=== PATIENT | male | born 1950 | race Caucasian/White ===

== ENCOUNTER 2018-04-23 22:51 | Inpatient (IN) | payer OTHER, MEDICARE ==
[~2018-04-23] VITALS: Ht 175.3 cm; Wt 74.1 kg
[~2018-04-23 22:51] MED LIST: DICLOFENAC SODI75 M2 PO
--- NOTE | 2018-04-24 00:59 | ED GENERAL ADULT ---
History of Present Illness General Chief Complaint: General Adult Stated Complaint: BLOOD IN BOWEL MOVEMENT Source: patient, family Exam Limitations: no limitations Vital Signs & Intake/Output Vital Signs & Intake/Output Vital Signs Date Time Temp Pulse Resp B/P B/P Pulse O2 O2 Flow FiO2 Mean Ox Delivery Rate 04/23 2304 98.2 116 20 157/80 97 Room Air ED Intake and Output 04/24 0000 04/23 1200 Intake Total Output Total Balance Patient 160 lb Weight Weight Reported by Patient Measurement Method Mild tachycardia noted Allergies Coded Allergies: No Known Allergies (04/23/18) Reconcile Medications Diclofenac Sodium 75 MG TABLET.DR 1 TAB PO BID PRN PAIN Triage Note: TRIAGE: PT TO ER WITH C/C BLOOD IN STOOL X COUPLE OF EPISODES THIS EVENING. STOOL WAS DIARRHEA. LNBM 11 AM. DENIES ANY PAIN. NO HX OF HEMMORRHOIDS. DENIES ANY OTHER S/S. Triage Nurses Notes Reviewed? yes Onset: Abrupt Duration: hour(s): Timing: multiple episodes today Severity: moderate No Modifying Factors: none HPI: This is an otherwise healthy 67-year-old male on no home medications who presents with several hours of recurrent blood per rectum. Patient states that he had a urge to use the bathroom, noticed he had blood in the bowl. He is unable to quantify but states that he has now had 4 episodes of dark, bloody stool. He denies any pain or discomfort. He has had no fever chills. He has had no recent illness. His father had colon cancer at a young age and he was therefore monitored every 3 years via colonoscopy starting in his 50s. His last colonoscopy was 5 years ago and revealed only polyps. He denies any change in recent bowel habits before today. He denies any unintentional weight loss. He denies ever having any bleeding problems or diverticulosis. He follows with Dr. Millan. Past History Travel History Traveled to [place] past 21 day No Medical History Any Pertinent Medical History? 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 Yes (colon ca in father) Review of Systems Review of Systems Constitutional: Reports: no symptoms. EENTM: Reports: no symptoms. Respiratory: Reports: no symptoms. Cardiovascular: Reports: no symptoms. GI: Reports: diarrhea, bloody stool, changes in stool. Denies: nausea. Genitourinary: Reports: no symptoms. Musculoskeletal: Reports: no symptoms. Skin: Reports: no symptoms. Neurological/Psychological: Reports: no symptoms. Hematologic/Endocrine: Reports: no symptoms. Physical Exam Physical Exam General Appearance: well developed/nourished, no apparent distress, alert, awake Head: atraumatic, normal appearance Eyes: Bilateral: normal appearance. Ears, Nose, Throat: normal pharynx Neck: normal inspection, supple, full range of motion Respiratory: normal breath sounds, lungs clear Cardiovascular: regular rate/rhythm Gastrointestinal: normal bowel sounds, soft, non-tender Rectal: normal rectal tone, heme positive stool, Dark, bloody stool in vault; no TTP; no obvious mass or other lesions Back: normal inspection Extremities: normal inspection Neurologic/Psych: no motor/sensory deficits, awake, alert, oriented x 3 Skin: intact, normal color, warm/dry Core Measures ACS in differential dx? No CVA/TIA Diagnosis: No Sepsis Present: No Sepsis Focused Exam Completed? Yes Progress Differential Diagnoses I considered the following diagnoses in my evaluation of the patient: [Lower GI bleed, upper GI bleed, colon cancer, coagulopathy] Plan of Care: Orders Procedure Date/time Status Nothing by Mouth 04/24 B Active Patient Data 04/24 155 Active Misc Message 04/24 151 Active ED Holding Orders 04/24 151 Active Code Status 04/24 151 Active Admit to inpatient 04/24 150 Active URINALYSIS 04/24 52 Complete PARTIAL THROMBOPLASTIN TIME 04/24 52 Complete PROTHROMBIN TIME 04/24 52 Complete COMPREHENSIVE METABOLIC PANEL 04/24 52 Complete CBC WITHOUT DIFFERENTIAL 04/24 52 Complete TYPE & SCREEN (NOT X-MATCH) 04/24 52 Active Laboratory Tests 04/24/18 0115: Anion Gap 12, Estimated GFR > 60, BUN/Creatinine Ratio 21.8, Glucose 105 H, Calcium 9.2, Total Bilirubin 0.7, AST 19, ALT 27, Alkaline Phosphatase 91, Total Protein 7.1, Albumin 4.1, Globulin 3.0, Albumin/Globulin Ratio 1.4, PT 12.1, INR 1.11, APTT 28, CBC w Diff NO MAN DIFF REQ, RBC 5.03, MCV 86.5, MCH 30.1, MCHC 34.8, RDW 12.8, MPV 7.9, Gran % 74.6, Lymphocytes % 13.8 L, Monocytes % 8.5, Eosinophils % 2.7, Basophils % 0.4, Absolute Granulocytes 4.9, Absolute Lymphocytes 0.9 L, Absolute Monocytes 0.6, Absolute Eosinophils 0.2, Absolute Basophils 0, Urine Color STRAW, Urine Clarity CLEAR, Urine pH 6.5, Ur Specific [place] <= 1.005, Urine Protein NEG, Urine Ketones NEG, Urine Nitrite NEG, Urine Bilirubin NEG, Urine Urobilinogen 0.2, Ur Leukocyte Esterase NEG, Ur Microscopic EXAM NOT REQUIRED, Urine Hemoglobin NEG, Urine Glucose NEG We will check labs, orthostatics, likely admission. Plan for Protonix IV. Initial ED EKG: none Comments: In this otherwise healthy 59-year-old male, we note mild tachycardia but stable vital signs otherwise with a stable and normal H&H. He is admitted to the medicine service for further management. No indication now for emergent endoscopy or colonoscopy. Case is discussed with die stamping press operator and internal medicine resident. Care signed out to Dr. Fraire in the ED. Departure Departure Disposition: STILL A PATIENT Condition: Stable Clinical Impression Primary Impression: Blood per rectum Referrals: Shellie Upton (PCP/Family) Departure Forms: Customer Survey General Discharge Information Critical Care Note Critical Care Note Critical Care Time: non-applicable
[2018-04-24 01:30] LABS: ABSOLUTE BASOPHIL COUNT 0 /CUMM (0.0-0.2); ABSOLUTE EOSINOPHIL COUNT 0.2 /CUMM (0.0-0.7); ABSOLUTE GRANULOCYTE CT 4.9 /CUMM (1.4-6.5); ABSOLUTE LYMPH COUNT 0.9 /CUMM (1.2-3.4); ABSOLUTE MONOCYTE COUNT 0.6 /CUMM (0.10-0.60); BASOPHIL % 0.4 % (0.0-2.0); EOSINOPHIL % 2.7 % (0-5); GRANULOCYTE % 74.6 % (42.2-75.2); HEMATOCRIT 43.6 % (42-52); MEAN CORPUSCULAR HGB 30.1 PG (27.0-31.0); MEAN CORPUSCULAR HGB CONC 34.8 G/DL (33.0-37.0); MEAN CORPUSCULAR VOLUME 86.5 FL (80.0-94.0); MEAN PLATELET VOLUME 7.9 FL (7.4-10.4); PLATELET COUNT 211 /CUMM (130-400); RBC DISTRIBUTION WIDTH 12.8 % (11.5-14.5); RED BLOOD CELL CT 5.03 /CUMM (4.70-6.10); WHITE BLOOD CELL COUNT 6.5 /CUMM (4.8-10.8)
[2018-04-24 01:44] LABS: PT 12.1 SEC (9.4-12.5); PTT 28 SEC (25-37)
--- NOTE | 2018-04-24 02:31 | History & Physical ---
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 Patient recalls having a bowel movement at 2230 this evening that was diarrhea with darkened blood but no clots. He did have tenesmus. This the first time he has ever had blood in his stool. He had 4 further episodes. Decided to come to the emergency room for further evaluation. Patient has had frequent colonoscopies due to family history of colon cancer in his father. His last colonoscopy was in 2011 and was normal. He is followed by Dr. Millan. He occasionally uses naproxen and for the past 3 days has used [place] once per day for a cold. He denies any recent travel, palpitations, sick contacts, pre-syncope, hematemesis, heartburn, dizziness, shortness of breath, chest pain, abdominal pain, dysuria, nausea. He is a never smoker, rarely drinks alcohol, denies recreational drug use. 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 EENTM: Reports: no symptoms. Cardiovascular: Reports: no symptoms. Respiratory: Reports: no symptoms. GI: Reports: see HPI. Genitourinary: Reports: no symptoms. Musculoskeletal: Reports: no symptoms. Skin: Reports: no symptoms. Neurological/Psychological: Reports: no symptoms. Hematologic/Endocrine: Reports: no symptoms. Immunologic/Allergic: Reports: no symptoms. All Other Systems: Reviewed and Negative Exam & Diagnostic Data Last 24 Hrs of Vital Signs/I&O Vital Signs Date Time Temp Pulse Resp B/P B/P Pulse O2 O2 Flow FiO2 Mean Ox Delivery Rate 04/23 2304 98.2 116 20 157/80 97 Room Air Intake & Output 04/24 0800 04/24 0000 04/23 1600 Intake Total Output Total Balance Patient 72.575 kg Weight Weight Reported by Patient Measurement Method Physical Exam General Appearance Alert, Oriented X3, Cooperative, No Acute Distress HEENT Atraumatic Cardiovascular Regular Rate, Normal S1, Normal S2 Lungs Clear to Auscultation Abdomen Normal Bowel Sounds, Soft, No Tenderness, No Hepatospenomegaly, No Masses Neurological Normal Speech Last 24 Hrs of Labs/Suresh: Laboratory Tests 04/24/18 0115: Anion Gap 12, Estimated GFR > 60, BUN/Creatinine Ratio 21.8, Glucose 105 H, Calcium 9.2, Total Bilirubin 0.7, AST 19, ALT 27, Alkaline Phosphatase 91, Total Protein 7.1, Albumin 4.1, Globulin 3.0, Albumin/Globulin Ratio 1.4, PT 12.1, INR 1.11, APTT 28, CBC w Diff NO MAN DIFF REQ, RBC 5.03, MCV 86.5, MCH 30.1, MCHC 34.8, RDW 12.8, MPV 7.9, Gran % 74.6, Lymphocytes % 13.8 L, Monocytes % 8.5, Eosinophils % 2.7, Basophils % 0.4, Absolute Granulocytes 4.9, Absolute Lymphocytes 0.9 L, Absolute Monocytes 0.6, Absolute Eosinophils 0.2, Absolute Basophils 0, Urine Color STRAW, Urine Clarity CLEAR, Urine pH 6.5, Ur Specific [place] <= 1.005, Urine Protein NEG, Urine Ketones NEG, Urine Nitrite NEG, Urine Bilirubin NEG, Urine Urobilinogen 0.2, Ur Leukocyte Esterase NEG, Ur Microscopic EXAM NOT REQUIRED, Urine Hemoglobin NEG, Urine Glucose NEG Assessment/Plan Assessment: 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 On presentation, vital signs were T 98.2, HR 116, RR 20, BP 157/80, saturating 97% on room air. Laboratories were completely normal. He will be admitted to general medicine and treated for the following problems: 1. Hematochezia #Hematochezia: Patient presents with history of diarrhea and bloody stools. Guaiac positive. Differential diagnosis includes diverticular bleed, colon cancer, infectious etiology, or other etiology. Patient is hemodynamically stable with normal hemoglobin and benign abdominal exam. -Clear liquid diet -Gastroenterology consult -Guaiac all stools -2 large-bore IV -Stool culture, ova and parasites -CBC every 12 hours -IV pantoprazole twice daily DVT prophylaxis with Alps Clear liquid diet Full code As Ranked By This Provider Problem List: 1. Blood per rectum Core Measures/Misc (08/08) Acute Coronary Syndrome ACS Diagnosis: No Congestive Heart Failure Congestive Heart Failure Diagnosis No Cerebrovascular Accident CVA/TIA Diagnosis: No VTE (View Protocol) VTE Risk Factors Age>40 No Mechanical VTE Prophylaxis d/t N/A MechProphylax Ordered No VTE Pharm Prophylaxis d/t Bleeding (Active) Sepsis (View protocol) Sepsis Present: No If YES complete Sepsis Event Note If YES complete Sepsis Event Note Hugh Diggs 04/24/18 0322: General Information and HPI Allergies/Medications Home Med list No Known Home Medications Past Family/Social History Family History Relations & Conditions if any MOTHER (Lung Ca). FATHER (Colon Cancer at 80 years Lung Cancer Diabetes Mellitus). 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 This is the first episode of blood per rectum the patient is experiencing. He denies any abdominal pain, nausea or vomiting. He has no upper GI symptoms and no history of vomiting blood in the past. Patient has had multiple colonoscopies a total of 4 to be exact and last one was 2011 which was normal. He has family history of colon cancer with his father having colon cancer at age of 80 years. He denies using NSAIDs, no recent travels and no consumption of and unsterilized pond quan. He has no history of easy bleeding or blood in urine. Patient denies any dizziness lightheadedness, shortness of breath, palpitation or tiredness. He has no fever or chills and denies any tenesmus or urgency. Vital signs on arrival afebrile 98.2 heart rate of 116 and respiration of 20 blood pressure 157/18 desaturating 97% on room air Physical examination: Seated comfortably in bed not in acute distress pink mucous membranes and pounds, a late and oriented to time place and person. Abdomen: Slightly obese, normal contour moving with respiration no palpable masses no tenderness. FRANCISCA done by ER physician and it's guaic positive. Head and neck: Wet mucous membranes no distended neck vessels CVS: Regular rate and rhythm normal S1-S2 no murmurs RS: Clear lungs bilaterally Extremities: No cyanosis edema or clubbing. Labs: H&H of 15.1 and 43.6, normal WBC of 6.5, slightly increased BUN of 24 with normal creatinine of 1.1, INR normal 1.11 EKG: Normal sinus rhythm 75 bpm regular with normal axis and no ST-T wave changes QTC of 420 Assessment and plan This is a 67 years old man without significant past medical history presenting with one-day episode of bright red per rectum mixed with darkish blood about 4 bouts mixed with diarrhea stools. This is the first episode of blood in stool. Patient is not on any medication, has no recent travels and no evidence of infection associated with the blood in stool. Patient is hemodynamically stable and has a very good H&H. This is most likely a lower GI bleed and unlikely to be upper GI with rapid transit for patient who is hemodynamically stable as that would've been more massive bleeding and likely to cause hemodynamic compromise Lower GI bleeding Admit the patient to general medicine floor Vital signs every shift CBC every 12 Guaiac all stools 2 large-bore canullas Blood group without cross match IV pantoprazole 40 mg daily Nothing by mouth pending GI evaluation Patient is full code Iglesia Bland MD 04/24/18 0457: Core Measures/Misc (08/08) Sepsis (View protocol) If YES complete Sepsis Event Note If YES complete Sepsis Event Note Attending MD Review Statement Attending Statement Attending MD Statement: examined this patient, discuss w/resident/PA/INDUSTRIAL SERVICES WORKER, agreed w/resident/PA/INDUSTRIAL SERVICES WORKER, discussed with nursing Attending Assessment/Plan: Mr. Sterling is a 59-year-old male with past medical history of lung nodules and shingles, has had multiple colonoscopies due to family history of colon cancer who presents with hematochezia. On presentation, vital signs were T 98.2, HR 116, RR 20, BP 157/80, saturating 97% on room air. Laboratories were completely normal. 1. Hematochezia with Guiaic positive - likely lower GI bleed - NPO for now - As patient is hemodynamically stable -Gastroenterology consult -CBC every 12 hours -IV pantoprazole twice daily - ALPS for DVT prophylaxis
[2018-04-24 06:01] LABS: ABSOLUTE BASOPHIL COUNT 0 /CUMM (0.0-0.2); ABSOLUTE EOSINOPHIL COUNT 0.1 /CUMM (0.0-0.7); ABSOLUTE GRANULOCYTE CT 4.2 /CUMM (1.4-6.5); ABSOLUTE MONOCYTE COUNT 0.5 /CUMM (0.10-0.60); BASOPHIL % 0.1 % (0.0-2.0); EOSINOPHIL % 2.2 % (0-5); GRANULOCYTE % 71.5 % (42.2-75.2); HEMATOCRIT 42.5 % (42-52); MEAN CORPUSCULAR HGB 29.4 PG (27.0-31.0); MEAN CORPUSCULAR VOLUME 86.3 FL (80.0-94.0); MEAN PLATELET VOLUME 7.6 FL (7.4-10.4); PLATELET COUNT 193 /CUMM (130-400); RBC DISTRIBUTION WIDTH 12.9 % (11.5-14.5); RED BLOOD CELL CT 4.92 /CUMM (4.70-6.10); WHITE BLOOD CELL COUNT 5.8 /CUMM (4.8-10.8)
--- NOTE | 2018-04-24 10:01 | Cons- Gastroenterology ---
General Information and HPI Consulting Request Date of Consult: 04/24/18 (MD [facility]/GASTROENTEROLOGY) Requested By: Iglesia Bland MD Reason for Consult: Hematochezia Source of Information: patient, old records History of Present Illness: 67-year-old white male with a family history of colon cancer and a personal history of adenomatous polyps, with most recent colonoscopy in 2011 demonstrating left-sided diverticulosis, but no recurrent neoplasia. Generally, he has no GI symptoms, including heartburn, dysphagia, dyspepsia, nausea, abdominal pain, diarrhea, constipation, unexplained weight loss. There has been no previous GI bleed. There is no history of liver disease. Yesterday evening the patient had 2 episodes of diarrhea accompanied by dark red blood. He had 2 more in the emergency room, but none in over 8 hours at this point. There has been no abdominal pain/cramps, nausea, vomiting. The patient denies dizziness, lightheadedness, syncope, chest pain, diaphoresis, shortness of breath. Family history positive for colon cancer (father). The patient does not smoke cigarettes, nor abuse alcohol. Allergies/Medications Allergies: Coded Allergies: No Known Allergies (04/23/18) Home Med List: No Known Home Medications Current Medications: Current Medications Sig/Jemal Start time Last Medication Dose Route Stop Time Status Admin Pantoprazole Sodium 0 .STK-MED ONE 04/24 0951 DC IV Pantoprazole Sodium 40 MG DAILY 04/24 0900 DC IV Pantoprazole Sodium 40 MG BID 04/24 0900 AC 04/24 IV 0946 Pantoprazole Sodium 0 .STK-MED ONE 04/24 0131 DC IV Pantoprazole Sodium 80 MG ONCE ONE 04/24 0100 DC 04/24 IV 04/24 0101 0128 Past History Travel History Traveled to [place] past 21 day No Medical History Blood Transfusion Hx: No Neurological: NONE EENT: NONE Cardiovascular: NONE Respiratory: BENIGN NODULES IN LUNGS Gastrointestinal: NONE Hepatic: NONE Renal: NONE Musculoskeletal: SHINGLES Psychiatric: NONE Endocrine: NONE Blood Disorders: NONE Cancer(s): NONE 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 FATHER (Colon Cancer at 80 years Lung Cancer Diabetes Mellitus). Psychosocial History Where Do You Live? Home Services at Home: None Smoking Status: Never Smoked ETOH Use: occasional use Illicit Drug Use: denies illicit drug use Review of Systems Review of Systems Constitutional: Denies: chills, diaphoresis, fever, unexplained weight loss. EENTM: Denies: icterus, epistaxis. Cardiovascular: Denies: chest pain, syncope. Respiratory: Denies: hemoptysis, short of breath. GI: Reports: see HPI. Genitourinary: Denies: dysuria, hematuria. Musculoskeletal: Denies: muscle stiffness, neck pain. Skin: Denies: jaundice, lesions. Neurological/Psychological: Denies: cognitive dysfunction, confusion. Hematologic/Endocrine: Reports: bleeding. Denies: bruising. Exam & Diagnostic Data Vital Signs and I&O Vital Signs Date Time Temp Pulse Resp B/P B/P Pulse O2 O2 Flow FiO2 Mean Ox Delivery Rate 04/24 546 97.6 71 18 141/79 96 Room Air 04/23 2304 98.2 116 20 157/80 97 Room Air Intake & Output 04/24 1600 04/24 0400 04/23 1600 04/23 0400 04/22 1600 04/22 0400 Intake Total Output Total Balance Patient 160 lb 160 lb Weight Weight Reported by Patient Measurement Method Physical Exam: Alert and oriented with normal cognition. Skin normal without rash, lesion, jaundice, stigmata of liver disease. No ecchymoses, petechiae purpura. No adenopathy. Sclera anicteric. Oropharynx normal. Neck supple without thyromegaly or mass. Heart regular rhythm. Lungs clear. Abdomen soft and nondistended with normal bowel sounds, and no tenderness, mass or organomegaly. No palpable hernia. Extremities without clubbing, cyanosis or edema. Normal distal pulses. Results Pertinent Lab Results: Laboratory Tests 04/24 04/24 0550 0115 Chemistry Sodium (137 - 145 mmol/L) 140 Potassium (3.5 - 5.1 mmol/L) 4.5 Chloride (98 - 107 mmol/L) 102 Carbon Dioxide (22 - 30 mmol/L) 27 Anion Gap (5 - 16) 12 BUN (9 - 20 mg/dL) 24 H Creatinine (0.7 - 1.2 mg/dL) 1.1 Estimated GFR (>60 ml/min) > 60 BUN/Creatinine Ratio (7 - 25 %) 21.8 Glucose (65 - 99 mg/dL) 105 H Calcium (8.4 - 10.2 mg/dL) 9.2 Total Bilirubin (0.2 - 1.3 mg/dL) 0.7 AST (17 - 59 U/L) 19 ALT (21 - 72 U/L) 27 Alkaline Phosphatase (< 127 U/L) 91 Total Protein (6.3 - 8.2 g/dL) 7.1 Albumin (3.5 - 5.0 g/dL) 4.1 Globulin (1.9 - 4.2 gm/dL) 3.0 Albumin/Globulin Ratio (1.1 - 2.2 %) 1.4 Coagulation PT (9.4 - 12.5 SEC) 12.1 INR (0.90 - 1.17) 1.11 APTT (25 - 37 SEC) 28 Hematology CBC w Diff NO MAN DIFF REQ NO MAN DIFF REQ WBC (4.8 - 10.8 /CUMM) 5.8 6.5 RBC (4.70 - 6.10 /CUMM) 4.92 5.03 Hgb (14.0 - 18.0 G/DL) 14.5 15.1 Hct (42 - 52 %) 42.5 43.6 MCV (80.0 - 94.0 FL) 86.3 86.5 MCH (27.0 - 31.0 PG) 29.4 30.1 MCHC (33.0 - 37.0 G/DL) 34.0 34.8 RDW (11.5 - 14.5 %) 12.9 12.8 Plt Count (130 - 400 /CUMM) 193 211 MPV (7.4 - 10.4 FL) 7.6 7.9 Gran % (42.2 - 75.2 %) 71.5 74.6 Lymphocytes % (20.5 - 51.1 %) 17.8 L 13.8 L Monocytes % (1.7 - 9.3 %) 8.4 8.5 Eosinophils % (0 - 5 %) 2.2 2.7 Basophils % (0.0 - 2.0 %) 0.1 0.4 Absolute Granulocytes (1.4 - 6.5 /CUMM) 4.2 4.9 Absolute Lymphocytes (1.2 - 3.4 /CUMM) 1.0 L 0.9 L Absolute Monocytes (0.10 - 0.60 /CUMM) 0.5 0.6 Absolute Eosinophils (0.0 - 0.7 /CUMM) 0.1 0.2 Absolute Basophils (0.0 - 0.2 /CUMM) 0 0 Urines Urine Color (YEL,AMB,STR) STRAW Urine Clarity (CLEAR) CLEAR Urine pH (5.0 - 8.0) 6.5 Ur Specific [place] (1.001 - 1.035) <= 1.005 Urine Protein (NEG,<30 MG/DL) NEG Urine Ketones (NEG) NEG Urine Nitrite (NEG) NEG Urine Bilirubin (NEG) NEG Urine Urobilinogen (0.1 - 1.0 EU/dl) 0.2 Ur Leukocyte Esterase (NEG) NEG Ur Microscopic EXAM NOT REQUIRED Urine Hemoglobin (NEG) NEG Urine Glucose (N MG/DL) NEG Assessment/Plan Assessment/Recommendations: 1. Hematochezia, with minor lower GI bleed. Differential diagnosis includes diverticular, versus mild colitis. Vital signs are stable. Hemoglobin has not dropped overnight. 2. Personal history of adenomatous polyps, and family history colon cancer. The patient is overdue for screening colonoscopy. Recommendations * Check CBC later this afternoon/evening, and in the morning. * Clear liquid diet. * Call GI with rebleeding, to discuss; colonoscopy will be considered Copies To: Shellie Upton Consult Acknowledgment - Thank you for your consult request.
--- NOTE | 2018-04-24 12:26 | Admission Certification ---
Admission Certification Certification Statement - As attending physician, I certify that at the time of - admission, based on clinical presentation, severity of - symptoms, need for further diagnostic testing and - therapeutic interventions, and risk of adverse outcomes - without in-hospital treatment, in my clinical assessment, - this patient requires an acute hospital stay for a minimum - of two nights or longer. I have also considered psychsocial - factors such as support system, advanced age, financial - issues, cognitive issues, and failed out-patient treatments, - past re-admission history, safety of patient, and lack of - compliance as applicable. Specific rationale supporting this admission is: Lower GI bleed in patient with history of diverticulosis
--- NOTE | 2018-04-24 12:29 | PN- Att Addend ---
Attending Addendum Attending Brief Note seen and examined. He hasn't had any more bloody bowel movements since about 1 AM this morning. On exam blood pressure is 140/70, pulse is 71, breathing at 16-18 and afebrile. He is awake alert oriented, lungs are clear to auscultation, heart is S1-S2 regular, abdomen is soft nontender and there is no edema. His hematocrit is stable, his BUN slightly elevated at 24. Is a 67-year-old male with a past medical history of emphysema, chronic lung nodules followed by Dr. Huizar as an outpatient and previous family history of colon cancer, chronic diverticular disease and previous colon polyp. He is here with an acute lower GI bleed. At this point the thought is that this is diverticular in nature. So far he is hemodynamically stable and his crit stays stable. Will repeat another crit later today and tomorrow morning. He's been seen by GI and we started him on a clear liquid diet and will follow-up.
[2018-04-24 14:54] VITALS: BP 119/69
[2018-04-24 18:40] LABS: ABSOLUTE BASOPHIL COUNT 0 /CUMM (0.0-0.2); ABSOLUTE EOSINOPHIL COUNT 0.1 /CUMM (0.0-0.7); ABSOLUTE GRANULOCYTE CT 5.2 /CUMM (1.4-6.5); ABSOLUTE LYMPH COUNT 0.9 /CUMM (1.2-3.4); ABSOLUTE MONOCYTE COUNT 0.5 /CUMM (0.10-0.60); BASOPHIL % 0.4 % (0.0-2.0); EOSINOPHIL % 1.8 % (0-5); GRANULOCYTE % 76.4 % (42.2-75.2); HEMATOCRIT 46.3 % (42-52); MEAN CORPUSCULAR HGB 29.3 PG (27.0-31.0); MEAN CORPUSCULAR HGB CONC 33.5 G/DL (33.0-37.0); MEAN CORPUSCULAR VOLUME 87.4 FL (80.0-94.0); MEAN PLATELET VOLUME 7.8 FL (7.4-10.4); PLATELET COUNT 208 /CUMM (130-400); RBC DISTRIBUTION WIDTH 13.2 % (11.5-14.5); WHITE BLOOD CELL COUNT 6.8 /CUMM (4.8-10.8)
[2018-04-24 22:31] VITALS: BP 110/60
[2018-04-25 06:40] VITALS: BP 118/80
--- NOTE | 2018-04-25 07:54 | PN- Housestaff ---
RenaernstRadhabetsey 04/25/18 0752: Subjective Follow-up For: -Lower GI Bleed - possibly diverticular bleed on clear liquid diet now -chronic lung nodules Subjective: i have seen and examiend the patient today morning. her h/h is stable. Review of Systems Constitutional: Reports: see HPI. Objective Last 24 Hrs of Vital Signs/I&O Vital Signs Date Time Temp Pulse Resp B/P B/P Pulse O2 O2 Flow FiO2 Mean Ox Delivery Rate 04/25 0640 97.6 72 16 118/80 97 Room Air 04/24 2231 98.3 86 19 110/60 97 Room Air 04/24 1454 98.4 67 20 119/69 97 Intake & Output 04/25 0800 04/25 0000 04/24 1600 Intake Total 200 300 300 Output Total Balance 200 300 300 Intake, Oral 200 300 300 Patient 74.134 kg Weight Weight Bed scale Measurement Method Physical Exam Cardiovascular: Regular Rate, Normal S1, Normal S2, No Murmurs Lungs: Clear to Auscultation, Normal Air Movement Abdomen: Normal Bowel Sounds, Soft, No Tenderness Extremities: No Clubbing, No Cyanosis, No Edema, Normal Pulses Vascular: Normal Pulses Current Medications: Current Medications Sig/Jemal Start time Last Medication Dose Route Stop Time Status Admin Pantoprazole Sodium 0 .STK-MED ONE 04/24 0951 DC IV Pantoprazole Sodium 40 MG BID 04/24 900 AC 04/24 IV 2026 Last 24 Hrs of Lab/Suresh Results Last 24 Hrs of Labs/Mics: Laboratory Tests 04/25/18 0655: CBC w Diff Pending, WBC Pending, RBC Pending, Hgb Pending, Hct Pending, MCV Pending, MCH Pending, MCHC Pending, RDW Pending, Plt Count Pending, MPV Pending 04/24/18 1805: CBC w Diff NO MAN DIFF REQ, RBC 5.30, MCV 87.4, MCH 29.3, MCHC 33.5, RDW 13.2, MPV 7.8, Gran % 76.4 H, Lymphocytes % 13.4 L, Monocytes % 8.0, Eosinophils % 1.8, Basophils % 0.4, Absolute Granulocytes 5.2, Absolute Lymphocytes 0.9 L, Absolute Monocytes 0.5, Absolute Eosinophils 0.1, Absolute Basophils 0 Lines/Diet/Fluids Restraints: none Assessment/Plan Assessment: Ms. 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 On presentation, vital signs were T 98.2, HR 116, RR 20, BP 157/80, saturating 97% on room air. Laboratories were completely normal. He was admitted to general medicine and treated for the following problems: #Hematochezia: Patient presents with history of diarrhea and bloody stools. Guaiac positive. Patient was hemodynamically stable with normal hemoglobin and benign abdominal exam. -She was initially kept on clear to quit again in anticipation of colonoscopy/ endoscopy, 2 large-bore IV needles were secured. CV she was monitored every 12 hourly, however her CBCs continued to be stable, she did not have any more episodes of bright red blood per rectum therefore the plan was to perform the colonoscopy as outpatient -Gastroenterology consult appreciated. -Ct po protonix DVT prophylaxis with Alps Clear liquid diet Full code Problem List: 1. Blood per rectum 2. Pulmonary nodule 3. Pleuritic chest pain Pain Ratin Pain Location: chest Pain Goal: Remain pain free Pain Plan: current plan Tomorrow's Labs & Rationales: cbc Moody Yu MD 04/25/18 2130: Objective Physical Exam General Appearance: Alert, Oriented X3, Cooperative, No Acute Distress Attending MD Review Statement Attending Statement Attending MD Statement: examined this patient, discuss w/resident/PA/ENTREPRENEUR, agreed w/resident/PA/ENTREPRENEUR, reviewed EMR data (avail), discussed with nursing, discussed with case mgmt, amended to note Attending Assessment/Plan: The patient was seen and discussed with house staff. Appreciate GI follow-up. The patient improved faster than expected and did not show evidence of further significant bleeding (had BRBPR on admission). OK to discharge to home today as per Dr. Millan. Will discharge on pantoprazole and patient advised to refrain from using ASA or NSAIDS until OK with GI. To have OP colonoscopy (is due for 5 year follow-up).
[2018-04-25 08:48] LABS: ABSOLUTE BASOPHIL COUNT 0 /CUMM (0.0-0.2); ABSOLUTE EOSINOPHIL COUNT 0.2 /CUMM (0.0-0.7); ABSOLUTE GRANULOCYTE CT 3.4 /CUMM (1.4-6.5); ABSOLUTE LYMPH COUNT 0.9 /CUMM (1.2-3.4); ABSOLUTE MONOCYTE COUNT 0.5 /CUMM (0.10-0.60); BASOPHIL % 0.4 % (0.0-2.0); GRANULOCYTE % 68.4 % (42.2-75.2); HEMATOCRIT 44.1 % (42-52); MEAN CORPUSCULAR HGB 29.8 PG (27.0-31.0); MEAN CORPUSCULAR HGB CONC 34.6 G/DL (33.0-37.0); MEAN CORPUSCULAR VOLUME 86.1 FL (80.0-94.0); MEAN PLATELET VOLUME 8.4 FL (7.4-10.4); PLATELET COUNT 208 /CUMM (130-400); RBC DISTRIBUTION WIDTH 12.9 % (11.5-14.5); RED BLOOD CELL CT 5.13 /CUMM (4.70-6.10); WHITE BLOOD CELL COUNT 4.9 /CUMM (4.8-10.8)
--- NOTE | 2018-04-25 09:09 | PN- Gastroenterology ---
Assessment/Plan GI Assessment/Recommendations: 1. Hematochezia, with minor lower GI bleed. Differential diagnosis includes diverticular, versus mild colitis. Vital signs are stable. Hemoglobin has not dropped.. 2. Personal history of adenomatous polyps, and family history colon cancer. The patient is overdue for screening colonoscopy. Recommendations * Regular diet * Consider discharge, with office follow-up. * Outpatient colonoscopy Thank you very much for allowing GI participation in this patient's care. Please call as needed. I will arrange for outpatient GI follow-up. Subjective Subjective: No bowel movement. No bleeding. Objective Vital Signs and I&Os Vital Signs Date Time Temp Pulse Resp B/P B/P Pulse O2 O2 Flow FiO2 Mean Ox Delivery Rate 04/25 640 97.6 72 16 118/80 97 Room Air 04/24 2231 98.3 86 19 110/60 97 Room Air 04/24 1454 98.4 67 20 119/69 97 Intake & Output 04/25 1600 04/25 0400 04/24 1600 04/24 0400 04/23 1600 04/23 0400 Intake Total 200 300 300 Output Total Balance 200 300 300 Intake, Oral 200 300 300 Patient 163 lb 160 lb 160 lb Weight Weight Bed scale Reported by Patient Measurement Method Physical Exam: Alert and oriented. Abdomen soft, nondistended, nontender. Current Medications: Current Medications Sig/Jemal Start time Last Medication Dose Route Stop Time Status Admin Pantoprazole Sodium 0 .STK-MED ONE 04/24 0951 DC IV Pantoprazole Sodium 40 MG BID 04/24 0900 AC 04/25 IV 0819 Results Pertinent Lab Results: Laboratory Tests 04/25 04/24 0655 1805 Hematology CBC w Diff NO MAN DIFF REQ NO MAN DIFF REQ WBC (4.8 - 10.8 /CUMM) 4.9 6.8 RBC (4.70 - 6.10 /CUMM) 5.13 5.30 Hgb (14.0 - 18.0 G/DL) 15.3 15.5 Hct (42 - 52 %) 44.1 46.3 MCV (80.0 - 94.0 FL) 86.1 87.4 MCH (27.0 - 31.0 PG) 29.8 29.3 MCHC (33.0 - 37.0 G/DL) 34.6 33.5 RDW (11.5 - 14.5 %) 12.9 13.2 Plt Count (130 - 400 /CUMM) 208 208 MPV (7.4 - 10.4 FL) 8.4 7.8 Gran % (42.2 - 75.2 %) 68.4 76.4 H Lymphocytes % (20.5 - 51.1 %) 18.0 L 13.4 L Monocytes % (1.7 - 9.3 %) 10.2 H 8.0 Eosinophils % (0 - 5 %) 3.0 1.8 Basophils % (0.0 - 2.0 %) 0.4 0.4 Absolute Granulocytes (1.4 - 6.5 /CUMM) 3.4 5.2 Absolute Lymphocytes (1.2 - 3.4 /CUMM) 0.9 L 0.9 L Absolute Monocytes (0.10 - 0.60 /CUMM) 0.5 0.5 Absolute Eosinophils (0.0 - 0.7 /CUMM) 0.2 0.1 Absolute Basophils (0.0 - 0.2 /CUMM) 0 0 /03 / 0550 0115 Chemistry Sodium (137 - 145 mmol/L) 140 Potassium (3.5 - 5.1 mmol/L) 4.5 Chloride (98 - 107 mmol/L) 102 Carbon Dioxide (22 - 30 mmol/L) 27 Anion Gap (5 - 16) 12 BUN (9 - 20 mg/dL) 24 H Creatinine (0.7 - 1.2 mg/dL) 1.1 Estimated GFR (>60 ml/min) > 60 BUN/Creatinine Ratio (7 - 25 %) 21.8 Glucose (65 - 99 mg/dL) 105 H Calcium (8.4 - 10.2 mg/dL) 9.2 Total Bilirubin (0.2 - 1.3 mg/dL) 0.7 AST (17 - 59 U/L) 19 ALT (21 - 72 U/L) 27 Alkaline Phosphatase (< 127 U/L) 91 Total Protein (6.3 - 8.2 g/dL) 7.1 Albumin (3.5 - 5.0 g/dL) 4.1 Globulin (1.9 - 4.2 gm/dL) 3.0 Albumin/Globulin Ratio (1.1 - 2.2 %) 1.4 Coagulation PT (9.4 - 12.5 SEC) 12.1 INR (0.90 - 1.17) 1.11 APTT (25 - 37 SEC) 28 Hematology CBC w Diff NO MAN DIFF REQ NO MAN DIFF REQ WBC (4.8 - 10.8 /CUMM) 5.8 6.5 RBC (4.70 - 6.10 /CUMM) 4.92 5.03 Hgb (14.0 - 18.0 G/DL) 14.5 15.1 Hct (42 - 52 %) 42.5 43.6 MCV (80.0 - 94.0 FL) 86.3 86.5 MCH (27.0 - 31.0 PG) 29.4 30.1 MCHC (33.0 - 37.0 G/DL) 34.0 34.8 RDW (11.5 - 14.5 %) 12.9 12.8 Plt Count (130 - 400 /CUMM) 193 211 MPV (7.4 - 10.4 FL) 7.6 7.9 Gran % (42.2 - 75.2 %) 71.5 74.6 Lymphocytes % (20.5 - 51.1 %) 17.8 L 13.8 L Monocytes % (1.7 - 9.3 %) 8.4 8.5 Eosinophils % (0 - 5 %) 2.2 2.7 Basophils % (0.0 - 2.0 %) 0.1 0.4 Absolute Granulocytes (1.4 - 6.5 /CUMM) 4.2 4.9 Absolute Lymphocytes (1.2 - 3.4 /CUMM) 1.0 L 0.9 L Absolute Monocytes (0.10 - 0.60 /CUMM) 0.5 0.6 Absolute Eosinophils (0.0 - 0.7 /CUMM) 0.1 0.2 Absolute Basophils (0.0 - 0.2 /CUMM) 0 0 Urines Urine Color (YEL,AMB,STR) STRAW Urine Clarity (CLEAR) CLEAR Urine pH (5.0 - 8.0) 6.5 Ur Specific [place] (1.001 - 1.035) <= 1.005 Urine Protein (NEG,<30 MG/DL) NEG Urine Ketones (NEG) NEG Urine Nitrite (NEG) NEG Urine Bilirubin (NEG) NEG Urine Urobilinogen (0.1 - 1.0 EU/dl) 0.2 Ur Leukocyte Esterase (NEG) NEG Ur Microscopic EXAM NOT REQUIRED Urine Hemoglobin (NEG) NEG Urine Glucose (N MG/DL) NEG
[2018-04-25] MEDS ORDERED: PROTONIX40 M3 PO (10:53)
--- NOTE | 2018-04-25 10:54 | Patient Discharge Instructions ---
Discharge Instructions General Discharge Information You were seen/treated for: acute GI blood loss Special Instructions: please follow up with your GI doctor as outpatient for colonscopy/endoscopy plan please follow up with your PCP within one week of discharge. Diet Continue normal diet: Yes Recommended Diet: Regular Acute Coronary Syndrome Inclusion Criteria At DC or during hospital stay patient has or had the following: ACS DIAGNOSIS No Discharge Core Measures Meds if any: Prescribed or Continued at Discharge Meds if any: NOT Prescribed or Continued at Discharge Congestive Heart Failure Inclusion Criteria At DC or during hospital stay patient has or had the following: CHF DIAGNOSIS No Discharge Core Measures Meds if any: Prescribed or Continued at Discharge Meds if any: NOT Prescribed or Continued at Discharge Cerebrovascular accident Inclusion Criteria At DC or during hospital stay patient has or had the following: CVA/TIA Diagnosis No Discharge Core Measures Meds if any: Prescribed or Continued at Discharge Meds if any: NOT Prescribed or Continued at Discharge Venous thromboembolism Inclusion Criteria VTE Diagnosis No VTE Type NONE VTE Confirmed by (Test) NONE Discharge Core Measures - Per Current guidelines, there needs to be overlap - treatment for the first 5 days of Warfarin therapy. - If discharged on Warfarin prior to 5 days of - overlap therapy, the patient will need to be - assessed for post discharge needs including - *Post discharge parental anticoagulation - *Warfarin and/or parental anticoagulation education - *Follow up date to check INR post discharge At least 5 days overlap therapy as Inpatient No Meds if any: Prescribed or Continued at Discharge Note: Overlap Therapy is Warfarin and Anticoagulant Meds if any: NOT Prescribed or Continued at Discharge
== END 2018-04-25 11:48 | DRG 379 ==
LOC: ERH 22:51 → ERHI 04-24 01:50 → 2NA 04-24 01:50 → ERHI 04-24 07:28 → ENRESERV 04-24 11:59 → ENTRNSPT 04-24 12:59 → EDTRNSPT 04-24 13:02 → EDTRNSPTSTS 04-24 13:02 → 2NA 04-24 13:10 → CMPTRNSPT 04-24 13:16 → 2NA 04-25 07:55 → ENTRNSPT 04-25 11:39 → 2NA 04-25 11:48 → EDTRNSPT 04-25 11:54 → EDTRNSPTSTS 04-25 11:54 → CMPTRNSPT 04-25 12:07
PROVIDERS: Preventive Medicine Public Health & General Preventive Medicine; Student in an Organized Health Care Education/Training Program
DX: K92.1 Melena (principal); R91.8 Other nonspecific abnormal finding of lung field; J43.9 Emphysema, unspecified
CPT/HCPCS: 2NASP; 36592; 81003; 87015; 87045; 87899; 87899-59; 93005; 93010